=== PATIENT | male | born 1955 | race Caucasian/White ===

== ENCOUNTER → 2019-09-29 | Outpatient (CLI) | payer OTHER | LOC: CAT 09:05 | PROVIDERS: ATTEND Internal Medicine Cardiovascular Disease | DX: I25.10 Atherosclerotic heart disease of native coronary artery without angina pectoris (principal); E78.00 Pure hypercholesterolemia, unspecified ==

== ENCOUNTER → 2020-10-23 | Outpatient (CLI) | payer OTHER | LOC: SJCVCIMAG 10:21 | PROVIDERS: ATTEND Internal Medicine Cardiovascular Disease | DX: I08.1 Rheumatic disorders of both mitral and tricuspid valves (principal); I25.10 Atherosclerotic heart disease of native coronary artery without angina pectoris; E78.5 Hyperlipidemia, unspecified; I10 Essential (primary) hypertension; R53.83 Other fatigue; R06.00 Dyspnea, unspecified ==